=== PATIENT | male | born 1970 | race Caucasian/White ===

== ENCOUNTER → 2018-01-08 13:37 | Outpatient (CLI) | payer OTHER, SELFPAY ==
--- NOTE | 2018-01-08 | DI.RAD.S_ITS ---
PROCEDURE: FL INJECTION MR/CT LT COMPARISON: None. INDICATIONS: RECUTTENT MENISCUS TEAR FINDINGS: After obtaining informed consent the medial left knee joint margin was prepared and draped in sterile fashion and anesthetized with 1% lidocaine. Injection needle was advanced into the joint space itself, positioning was confirmed by injection of a small amount of iodinated nonionic contrast, and thereafter a sterile saline/gadolinium solution was instilled IMPRESSION: Successful knee joint injection for subsequent MR arthrography. Dictated by: Miguelito Newsome M.D. on 01/08/2018 at 15:52 Approved by: Miguelito Newsome M.D. on 01/08/2018 at 15:53
--- NOTE | 2018-01-08 | DI.MRI.S_ITS ---
PROCEDURE: MR KNEE LT W CON INDICATIONS: RECURRENT MENISCUS TEAR. LEFT KNEE PAIN TECHNIQUE: After the administration of 50 mL of dilute intra-articular Gadolinium contrast, sagittal T1 spin echo with fat saturation and PD fast spin echo with fat saturation, coronal T1 spin echo with and without fat saturation, coronal T2 fast spin echo with fat saturation, axial PD fast spin echo with fat saturation through the knee. COMPARISON: [facility], MR, MR KNEE LT WO CON, 07/25/2017, 17:54. [facility], MR, KNEE WITHOUT CONTRAST, 01/14/2017, 19:58. FINDINGS: Image quality: Diagnostic. Bones and joint: There is no acute fracture or dislocation. No suspicious osseous lesions are evident. There is adequate distention of the vein knee joint with the injected contrast. No large loose intra-articular joint bodies are identified. Extensive irregularity of the head articular cartilage within the patellofemoral compartment is evident with a moderate-sized irregular full-thickness defect identified along the lateral patellar facet there also is a moderate-sized irregular full-thickness defect involving the trochlear groove, which has increased in the interim. Smaller defects of the hyaline articular cartilage within the medial femoral compartment are present. Degenerative/reactive marrow edema is identified along the periphery of the medial tibial plateau related to a defect of the overlying hyaline articular cartilage. There is a small defect involving the hyaline articular cartilage on the posterior aspect of the lateral tibial plateau. Cruciate ligaments: The anterior and posterior cruciate ligaments are intact. Menisci: There is tearing identified on the free edge of the medial meniscus at the junction of the body and posterior horn. Increasing degree of irregularity within this region along the inferior articular surface may be related to an interval partial meniscectomy. The possibility of a small undersurface flap tear with maceration is difficult to exclude. The marker partial-thickness tearing involving the anterior attachment of the medial meniscus is identified, similar to the prior study. There is degenerative signal in the periphery of the body of the lateral meniscus. The lateral meniscus is otherwise unremarkable. Medial structures: The medial collateral ligament is intact. The semimembranosus tendon insertion is intact. The imaged portions of the pes anserinus tendons are unremarkable. No significant fluid is contained within the pes anserinus bursa. Lateral structures: The popliteal tendon is intact. The lateral collateral ligament proper (fibular collateral ligament) and the proximal tibiofibular ligaments are intact. The distal aspect of the biceps femoris tendon and the iliotibial band are intact. Anterior structures: The quadriceps and patellar tendons are intact. There may be increased signal involving the patellar tendon. Mild prepatellar soft tissue edema is noted. There is no significant edema in the infrapatellar fat pad. 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 2. Complex tearing of the medial meniscus is slightly more prominent on the current examination, which could potentially be related to interval partial meniscectomy along the undersurface of the body of the medial meniscus. 3. Mild patellar tendinopathy. 4. Degenerative signal of the lateral meniscus without a discrete tear evident. Dictated by: Jacques Braga M.D. on 01/08/2018 at 15:08 Approved by: Jacques Braga M.D. on 01/08/2018 at 15:13
== END ==
DX: S83.232A Complex tear of medial meniscus, current injury, left knee, initial encounter (principal); M22.42 Chondromalacia patellae, left knee; M25.562 Pain in left knee
CPT/HCPCS: 20610; 73722; 77002

== ENCOUNTER → 2020-01-15 14:13 | Outpatient (CLI) | payer OTHER, SELFPAY ==
[2020-01-17 00:56] LABS: COVID19 Sendout Not Detected (Not Detect)
== END ==
PROVIDERS: Visit Provider Physician Assistant
DX: Z11.59 Encounter for screening for other viral diseases (principal)
CPT/HCPCS: 87635

== ENCOUNTER 2022-07-22 17:23 | Emergency (ER) | payer OTHER, SELFPAY ==
[2022-07-22 17:30] VITALS: BP 162/112; PULSE 88; RESP 29; TEMP 36.3; O2SAT 99; BMI 31.1
--- NOTE | 2022-07-22 19:46 | ED_ITS ---
HPI - Back Pain/Injury General Chief Complaint: Back Pain/Injury Stated Complaint: Back pain Time Seen by Provider: 07/22/22 19:23 Source: patient History of Present Illness HPI Narrative: 51-year-old male former smoker with history of prior back issues presents with his in the chief complaint of severe left lower back pain that radiates into his left hip and lateral thigh. He states that last fall he had an injury and things had largely been better, he had been doing physical therapy with marked improvement. A few days ago he was using the vacuum and felt a pulling sensation in his lower back and has had worsening pain over the past few days. He states it is sharp and stabbing and radiates into left hip and thigh as noted. He denies numbness, tingling or weakness. He has no fever or chills. He denies any loss of control of bowel or bladder. He takes no blood thinners and has had no fever or chills. Related Data Previous Rx's Medication Instructions Recorded diazepam 5 mg tablet (Valium) 5 mg PO BID-QID PRN muscle spasm 07/22/22 #10 tabs gabapentin 300 mg capsule 300 mg PO BEDTIME #14 caps 07/22/22 hydrocodone 5 mg-acetaminophen 325 1 tab PO Q4-6H PRN pain #10 tabs 07/22/22 mg tablet ketorolac 10 mg tablet 10 mg PO Q6H PRN pain #14 tabs 07/22/22 methylprednisolone 4 mg tablets in See Rx Instructions PO .COMPLEX 07/22/22 a dose pack (Medrol (Mick)) #21 ea Allergies Allergy/AdvReac Type Severity Reaction Status Date / Time oxycodone [From OxyContin] AdvReac Intermediate Nausea Verified 07/22/22 17:44 Review of Systems Review of Systems Narrative: GENERAL: Denies chills, fatigue, malaise, fever, sweats. HEENT: Denies sinus pain, ear pain, sore throat, difficulty swallowing, dizziness. RESPIRATORY: Denies dyspnea, cough, wheezing, hemoptysis, sputum. CARDIOVASCULAR: Denies chest pain, palpitations, orthopnea, edema, GASTROINTESTINAL: Denies nausea, vomiting, abdominal pain, diarrhea, constipation, melena. : Denies dysuria, frequency, incontinence, hematuria, urinary retention. MUSCULOSKELETAL: See HPI SKIN: Denies rash, skin lesions, or other NEUROLOGIC: See HPI PSYCHIATRIC: No concerning psychosocial issues. 12 point review of systems is negative except for those stated above Patient History Social History Smoking Status: Former smoker Smoking Status: Former smoker tobacco type: cigarettes and smokeless tobacco alcohol intake frequency: 0-2 drinks per day Substance Use Type: does not use Exam Narrative Exam Narrative: GENERAL: [51] year old patient appears stated age. Well-developed patient, in mild distress. HEAD: Atraumatic. Normocephalic. EYES: Pupils equal round and reactive. Extraocular motions intact. No scleral icterus. No injection or drainage. ENT: Nose without bleeding, purulent drainage. Throat without erythema, tonsillar hypertrophy or exudate. Airway patent. NECK: Trachea midline. Non tender CARDIOVASCULAR: Regular rate and rhythm without murmurs, gallops, or rubs. RESPIRATORY: Clear to auscultation. Breath sounds equal bilaterally. No wheezes, rales, or rhonchi. GASTROINTESTINAL: Abdomen soft, non-tender, nondistended. EXTREMITIES: No edema or joint tenderness. BACK: fiber machine tender but free of any obvious external abnormalities. Patient exam notes decreased range of motion and muscle spasm, but no CVA tenderness, or vertebral point tenderness. There are no symptoms of cauda equina such as saddle anesthesia, and decreased reflexes, decreased sensation or strength. NEURO: AOx3. SKIN: No rash or erythema of visible areas Initial Vital Signs Initial Vital Signs: Vital Signs Temperature 97.4 F L 07/22/22 17:30 Pulse Rate 88 07/22/22 17:30 Respiratory Rate 29 H 07/22/22 17:30 Blood Pressure 162/112 H 07/22/22 17:30 Pulse Oximetry 99 07/22/22 17:30 Oxygen Delivery Method Room Air 07/22/22 17:30 Course Orders Ordered: Discontinued Medications Hydrocodone Bitart/Acetaminophen (Hydrocodone/Acet 5/325 Prepack) 1 bottle MISC SEEINSTR ONE Stop: 07/22/22 20:04 Last Admin: 07/22/22 20:15 Dose: 1 bottle Documented By: JARRET Cyclobenzaprine HCl (Cyclobenzaprine 10 Mg Prepack) 1 bottle MISC SEEINSTR ONE Stop: 07/22/22 20:04 Last Admin: 07/22/22 20:15 Dose: 1 bottle Documented By: JARRET Diazepam (Diazepam 5 Mg Tablet) 5 mg PO NOW ONE Stop: 07/22/22 20:04 Last Admin: 07/22/22 20:15 Dose: 5 mg Documented By: JARRET Gabapentin (Gabapentin 300 Mg Capsule) 300 mg PO NOW ONE Stop: 07/22/22 20:04 Last Admin: 07/22/22 20:16 Dose: 300 mg Documented By: JARRET Ketorolac Tromethamine (Ketorolac 30 Mg/Ml Vial) 30 mg IM NOW ONE Stop: 07/22/22 20:04 Last Admin: 07/22/22 20:16 Dose: 30 mg Documented By: JARRET Prednisone (Prednisone 20 Mg Tablet) 40 mg PO NOW ONE Stop: 07/22/22 20:04 Last Admin: 07/22/22 20:15 Dose: 40 mg Documented By: JARRET Vital Signs Vital signs: Vital Signs - 8 hr 07/22/22 21:02 Pulse Rate 73 Respiratory Rate 16 Blood Pressure 128/82 Pulse Oximetry 97 Oxygen Delivery Method Room Air MDM - Back Pain/Injury MDM Narrative Medical decision making narrative: CC: 51-year-old male with back pain after vacuuming, sharp and stabbing down into left hip Complicating co-morbidities: Former smoker, prior lumbar issues Data collected from: Patient Medical records reviewed: Prior notes reviewed in our EMR Differential considered, but not limited to: Lumbar radiculopathy versus muscle spasm versus cauda equina versus epidural hematoma versus abscess versus other Exam documented above, pertinent findings include: Treatments: Ketorolac, prednisone, diazepam, gabapentin Re-evaluations: Patient feeling better after above-stated therapies Discussion: Patient with known back pain developed worsening back pain while vacuuming. Multiple etiologies of back pain considered including; Epidural abscess, cauda equina, mass occupying lesion, and other considered, however thankfully no elements in his exam or story suggested red flag elements consistent with a neurosurgical emergency. Disposition: see below, along with detailed discharge instructions that have been reviewed with patient as well as indications for ED re-evaluation and additional outpatient follow up Discharge Plan Departure Patient Disposition: Home Clinical Impression: Acute left lumbar radiculopathy Instructions: DI for Lumbar Radiculopathy Activity Restrictions/Additional Instructions: *You have been diagnosed with [lumbar radiculopathy] *What to do: *Please continue to take your regular medications as directed. [ x] New medication prescriptions sent to your pharmacy: [[facility] ] [ ] New medication written as a paper prescription [ ] No new medications given *Please follow up with your primary care provider in 2-3 days, call for an ap pointment. Let them know you were seen in the Emergency Department and that we ask that you be seen in follow up. We will electronically transmit a record of today's note if your PCP is in our system *If you do not have a primary care provider please contact the [facility] Resource line at [phone]. They will ask some questions about your medical history and help get you set up with a doctor in the community. *Return to Emergency Department if you should have any new, worsening or concerning symptoms, such as [fever greater than 101 F, shaking chills, worsening pain, persistent vomiting or other bothersome symptoms] You have been prescribed a short course of narcotic medications. These are potentially dangerous and addictive medications that should be used carefully. While on these medications you cannot drive or operate heavy machinery. Additionally, you cannot sign legal documents or perform any duties such as this. Many people get constipated on narcotic medications so it would be advisable to discuss stool softeners with the pharmacist when you pickle pumper your prescription. Please understand that we cannot provide further refills of narcotics or controlled substances through the ED and your pain management will need to be through your Primary Care Provider Prescriptions: New hydrocodone-acetaminophen 5-325 mg tablet 1 tab PO Q4-6H PRN (Reason: pain) Qty: 10 0RF ketorolac 10 mg tablet 10 mg PO Q6H PRN (Reason: pain) Qty: 14 0RF gabapentin 300 mg capsule 300 mg PO BEDTIME Qty: 14 0RF methylprednisolone [Medrol (Mick)] 4 mg tablets,dose pack See Rx Instructions .ROUTE .COMPLEX Qty: 21 0RF Rx Instructions: orally per package directions diazepam [Valium] 5 mg tablet 5 mg PO BID-QID PRN (Reason: muscle spasm) Qty: 10 0RF Referrals: Miscellaneous,Doctor, MD [Primary Care Provider] - Stand Alone Forms: Patient Portal/API
[2022-07-22] MEDS: diazePAM 5 MG TABLET PO (20:15)
[2022-07-22] MEDS: HYDROCODONE/ACET 5/325 PREPACK 1 BOTTLE MISC (20:15)
[2022-07-22] MEDS: predniSONE 20 MG TABLET 40 MG PO (20:15)
[2022-07-22] MEDS: CYCLOBENZAPRINE 10 MG PREPACK 1 BOTTLE MISC (20:15)
[2022-07-22] MEDS: KETOROLAC 30 MG/ML VIAL IM (20:16)
[2022-07-22] MEDS: GABAPENTIN 300 MG CAPSULE PO (20:16)
[2022-07-22 21:02] VITALS: BP 128/82; PULSE 73; RESP 16; O2SAT 97
== END 2022-07-22 21:05 | disposition home or self-care (01) ==
PROVIDERS: Emergency Provider Emergency Medicine
DX: M54.16 Radiculopathy, lumbar region (principal)
CPT/HCPCS: 96372; 99283; J1885

== ENCOUNTER → 2022-08-03 08:18 | Outpatient (CLI) | payer OTHER, SELFPAY ==
--- NOTE | 2022-08-03 | DI.MRI.S_ITS ---
PROCEDURE: MR LUMBAR SPINE WO CON INDICATIONS: Strain of muscle, fascia and tendon of lower back, TECHNIQUE: Noncontrast sagittal T1 spin echo and T2 fast echo, sagittal STIR, and T2 fast spin echo through the lumbar spine. In cases with scoliosis, additional coronal T2 fast spin echo may be performed. COMPARISON: None. FINDINGS: Image quality: This examination is limited by involuntary motion artifact. Images are repeated, with some improvement. Alignment and Curvature: There is mild retrolisthesis seen at L5-S1. Bone Marrow: Marrow is of normal overall signal. No acute vertebral body compression fractures. Spinal Cord: Conus medullaris terminates at the L1 level. Visualized cord demonstrates normal signal and size. Paraspinous Soft Tissues: No paravertebral masses. T12-L1: Normal appearance. L1-L2: The disc height and disk signal are well-preserved. Mild generalized disc bulge is seen. There is mild right-sided and no significant left-sided neural foraminal narrowing. Minimal central canal narrowing is seen. L2-L3: Wtyl-ne-wecfezvy loss of disc height and disc signal can be seen. Moderate generalized disc bulge is seen. There is a superimposed central disc protrusion. There is a focal annular fissure seen posteriorly. Mild bilateral neural foraminal narrowing is seen. Moderate central canal narrowing is seen. L3-L4: The disc height and disk signal are relatively well-preserved. Moderate generalized disc bulge is seen. There is a superimposed central disc protrusion. There is a focal annular fissure seen posteriorly. There is moderate left-sided and glke-ua-rrbhzjmy right-sided neural foraminal narrowing. Moderate central canal narrowing is seen. L4-L5: The disc height and disk signal are well-preserved. At least moderate disc bulge is seen. There is a central disc protrusion. There is also a foraminal disc extrusion, with superior migration of the disc material, as on series 6, image 2 and on series 12 image 14 and on series 8, image 13. There is severe left-sided neural foraminal narrowing, with associated compression upon the exiting left L4 nerve root. Moderate right-sided neural foraminal narrowing is seen. Moderate facet joint hypertrophy is seen. Moderate central canal narrowing is seen. L5-S1: The disc height and disk signal are well-preserved. Mild disc bulge is seen, which is eccentric to the right, with a right foraminal disc protrusion. Moderate facet joint hypertrophy is seen. There is moderate to severe bilateral neural foraminal narrowing seen, with an associated a degree of compression seen upon the exiting nerve roots. Moderate central canal narrowing is seen. IMPRESSION: At the L4-L5 level, there is a left foraminal disc extrusion, with severe neural foraminal narrowing and compression upon the exiting left L4 nerve root. At L5-S1, moderate to severe bilateral neural foraminal narrowing can be seen, with associated compression upon the exiting L5 nerve roots. Milder degenerative changes are seen elsewhere. Dictated by: Hector De La Torre M.D. on 08/03/2022 at 10:33 Approved by: Hector De La Torre M.D. on 08/03/2022 at 10:37
== END ==
PROVIDERS: PCP Family Medicine; Referring Provider Physical Medicine & Rehabilitation; Visit Provider Physical Medicine & Rehabilitation
DX: S39.012A Strain of muscle, fascia and tendon of lower back, initial encounter (principal); M51.26 Other intervertebral disc displacement, lumbar region; M48.061 Spinal stenosis, lumbar region without neurogenic claudication; M48.07 Spinal stenosis, lumbosacral region
CPT/HCPCS: 72148

== ENCOUNTER → 2023-09-03 13:33 | Outpatient (CLI) | payer OTHER, SELFPAY ==
--- NOTE | 2023-09-03 13:36 | DI.ECHO.S_ITS ---
[facility] : : [address] : : [place] : : [id number] : : Phone: [phone] Echocardiogram Report + + :Name: WIN ALBRIGHT Study Date: 09/03/2023 Height: 72 in : :Hospital ReadingLocation: Weight: 235 lb : : Gender: Male BSA: 2.3 m2 : :: 1970 Age: 52 yrs BP: 126/86 mmHg: :Reason For Study: ESSENTIAL HYPERTENSION : :Ordering Physician: DUKE, : :[place] Performed By: Valeriy Villalobos : :Referring: [place] : + + Interpretation Summary 1) Moderately enlarged left ventricle with mildly increased thickness (concentirc) and normal wall motion, and normal systolic function (EF 55-60%). 2) Normal right ventricular size and function. 3) No significant valvular abnormalities. 4) The ascending aorta is mildly enlarged at 4.1cm. 5) No prior Echo available for comparison. Procedure: A two-dimensional transthoracic echocardiogram with color flow and Doppler was performed. The study quality was technically adequate. There is no prior echocardiogram noted for this patient. The patient was in atrial fibrillation with heart rates between 58-82 bpm during the exam. Left Ventricle: The left ventricle is moderately dilated. Left ventricular wall thickness is mildly increased. The ejection fraction is estimated to be 55-60%. Left ventricular systolic function appears normal without focal wall motion abnormalities. Diastolic parameters suggest a relaxation abnormality of the left ventricle, consistent with probable normal filling pressures. Right Ventricle: The right ventricle is normal size. The right ventricular systolic function is normal. Atria: The left atrial size is normal. Right atrial size is normal. The interatrial septum grossly appears intact with no obvious evidence for an atrial septal defect. Mitral Valve: The mitral valve is normal. There is no mitral valve stenosis. There is no mitral regurgitation noted. Aortic Valve: The aortic valve is trileaflet. There is no aortic valve stenosis. No aortic regurgitation is present. Tricuspid Valve: The tricuspid valve is normal. There is no tricuspid stenosis. There is trace tricuspid regurgitation. Pulmonary artery pressures cannot be estimated because of the lack of a measurable TR jet velocity. Pulmonic Valve: The pulmonic valve is not well visualized. There is no pulmonic valvular stenosis. There is no pulmonic valvular regurgitation. Great Vessels: The aortic root is mildly dilated. The ascending aorta is mildly enlarged. No Doppler or imaging evidence of an aortic coarctation. The inferior vena cava was not visualized. Pericardium/ Pleura There is no pericardial effusion. There is no pleural effusion. MMode/2D Measurements & Calculations LVIDd: 6.6 cm LVOT diam: 2.1 cm LVIDs: 5.2 cm Ao root diam: 3.8 cm FS: 22.0 % asc Aorta Diam: 4.1 cm IVSd: 1.1 cm Ao Arch Diam (Prox Trans): 2.9 cm LVPWd: 1.1 cm LV donovan. diameter/BSA (cm/m^2): 2.9 LV sys. diameter/BSA (cm/m^2): 2.3 LA A2 area: 23.4 cm2 RA long axis: 5.2 cm LA A4 area: 17.5 cm2 RA area: 16.3 cm2 LA length (vol): 5.1 cm RA vol: 42.9 ml LA vol: 67.8 ml RA : 18.8 ml/m2 LA vol index: 29.7 ml/m2 RVD1 (basal): 3.8 cm RVD2 (mid): 3.5 cm TAPSE: 2.0 cm Doppler Measurements & Calculations Ao V2 max: 158.9 cm/sec LVOT Max Julián: 92.9 cm/sec Ao V2 mean: 98.9 cm/sec LV V1 max P.5 mmHg Ao max P.1 mmHg LV V1 VTI: 20.8 cm Ao mean P.6 mmHg PRATIMA(I,D): 2.5 cm2 Ao V2 VTI: 29.4 cm PRATIMA(V,D): 2.1 cm2 sev ratio: 0.71 PRATIMA indexed to BSA (cm^2/m^2): 1.1 MV E max julián: 57.4 cm/sec TR max julián: 247.7 cm/sec MV A max julián: 73.3 cm/sec TR max P.6 mmHg MV E/A: 0.78 PA V2 max: 121.5 cm/sec Med Peak E' Julián: 6.6 cm/sec PA V2 mean: 78.5 cm/sec E/E' med: 8.7 PA mean P.9 mmHg Lat Peak E' Julián: 9.3 cm/sec PA pr(Accel): 32.8 mmHg E/E' lat: 6.2 E/e' average: 7.4 MV dec time: 0.22 sec SV(LVOT): 73.4 ml Reading Physician:04:16 PM
== END ==
PROVIDERS: PCP Naturopath; Referring Provider Internal Medicine Cardiovascular Disease; Visit Provider Internal Medicine Cardiovascular Disease
DX: I77.810 Thoracic aortic ectasia (principal); I77.89 Other specified disorders of arteries and arterioles; I10 Essential (primary) hypertension
CPT/HCPCS: 93306